=== PATIENT | female | born 1940 | race Caucasian/White ===

== ENCOUNTER 2023-08-11 13:29 | Emergency (ER) | payer MEDICARE, OTHER ==
[2023-08-11] MEDS: Iopamidol 755 Mg/ML 100 ML Bottle IVPUSH ONE (13:56)
[2023-08-11] MEDS: Sodium Chloride 0.9% 100 ML IV SCH (13:56)
[2023-08-11] MEDS: Sodium Chloride 0.9% 10 ML Syringe FLUSH PRN (13:57)
[2023-08-11] MEDS: Sodium Chloride 0.9% 500 ML IV ONE ×2 (13:58→16:34)
[2023-08-11] MEDS: Sodium Chloride 0.9% 1,000 ML ONE (14:02)
[2023-08-11 14:14] LABS: BASOPHILS ABSOLUTE AUTO 0.1 K/mm3 (0.0-0.2); BASOPHILS PERCENT AUTO 0.3 % (0.0-1.0); HEMATOCRIT 37.6 % (37.0-47.0); IMMATURE GRAN ABSOLUTE AUTO 0.41 K/mm3 (0.00-0.05); IMMATURE GRAN PERCENT AUTO 1.6 % (0.0-0.4); LYMPHOCYTES ABSOLUTE AUTO 0.9 K/mm3 (1.0-4.8); LYMPHOCYTES PERCENT AUTO 3.3 % (24.0-44.0); MEAN CORPUSCULAR HEMOGLOBIN 33.1 pg (28.0-32.0); MEAN CORPUSCULAR HGB CONC 31.9 g/dl (32.0-36.0); MEAN CORPUSCULAR VOLUME 103.6 fl (83.0-99.0); MEAN PLATELET VOLUME 10.3 fl (9.4-12.3); MONOCYTES ABSOLUTE AUTO 0.8 K/mm3 (0.0-0.8); NEUTROPHILS PERCENT AUTO 91.8 % (41.0-71.0); PLATELET COUNT,PLT 214 K/mm3 (150-400); RED BLOOD CELL COUNT 3.63 M/mm3 (4.10-5.30); WHITE BLOOD CELL COUNT,WBC 26.11 K/mm3 (3.9-11.3)
[2023-08-11] MEDS: Levofloxacin/Dextrose 5%-Water 500 MG in Premix Bag 1 BAG IV ONE (14:24)
[2023-08-11 14:28] LABS: INR 1.21; PROTHROMBIN TIME 12.8 SECONDS (9.7-12.0)
[2023-08-11 14:30] LABS: PTT,PARTIAL THROMBOPLSTIN TIME 28.4 SECONDS (21.7-31.4)
[2023-08-11 14:38] LABS: SLIDE REVIEW ABNORMAL SMEAR
[2023-08-11 14:41] LABS: LACTIC ACID 10.3 mmol/L (0.4-2.0)
[2023-08-11 14:45] LABS: A/G RATIO 1.1 (1-2); ALBUMIN 2.6 g/dl (3.4-5.0); ANION GAP 21.2 (5-15); BILIRUBIN TOTAL 0.5 mg/dL (0.2-1.0); BUN/CREATININE RATIO 22.9 (14-18); CALCIUM 7.7 mg/dL (8.5-10.1); CREATININE 1.4 mg/dL (0.55-1.02); EST CRCL DRUG DOSING (CG) 24.5 mL/min; POTASSIUM,K 4.2 mEq/L (3.5-5.1)
[2023-08-11 14:53] LABS: APPEARANCE,URINE CLEAR (Clear); BILIRUBIN,URINE NEGATIVE (Negative); COLOR,URINE YELLOW (Yellow); GLUCOSE,URINE NEGATIVE (Negative); KETONES,URINE NEGATIVE (Negative); LEUKOCYTE ESTERASE,URINE NEGATIVE (Negative); NITRITE,URINE NEGATIVE (Negative); OCCULT BLOOD,URINE 2+ (Negative); PH,URINE 5.5 (5.0-8.0); PROTEIN,URINE 1+ (Negative); UROBILINOGEN,URINE 0.2 (0.2-1.0)
[2023-08-11 15:07] LABS: BACTERIA,URINE MODERATE /hpf (FEW); MUCUS,URINE FEW /hpf (FEW); SQUAMOUS EPITHELIAL CELLS,UR 0-5 /hpf (0-5); WBC,URINE 0-5 /hpf (0-5)
[2023-08-11] MEDS: Norepinephrine 4 MG in Dextrose 5% in Water 246 ML IV SCH (15:20)
[2023-08-11] MEDS: Etomidate 2 MG/ML 20 ML SDV IVPUSH ONE ×2 (15:23→16:17)
[2023-08-11] MEDS: propofoL 100 ML IV SCH (16:15)
[2023-08-11] MEDS: Hydrocortisone Sodium Succinate 100 MG/2 ML SDV IV SCH (16:34)
[2023-08-11] MEDS: propofoL 100 ML ONE (16:34)
[2023-08-11] MEDS: Thiamine 200 MG/2 ML MDV IVPUSH ONE (16:34)
[2023-08-11 16:55] LABS: PCO2 ARTERIAL 38.9 mmHg (35.0-45.0)
[2023-08-11 16:56] LABS: BASE EXCESS ARTERIAL -8.9 (-2-2.0); BICARBONATE,ARTERIAL 17.1 meq/L (22.0-26.0); O2 SATURATION ARTERIAL 94.6 % (96.0-97.0)
[2023-08-11] MEDS: Ketamine 500 MG in Sodium Chloride 0.9% 490 ML IV SCH (16:59)
== END 2023-08-11 17:35 ==
LOC: JD.ED 13:29
DX: A41.9 Sepsis, unspecified organism (principal); R65.21 Severe sepsis with septic shock; J96.01 Acute respiratory failure with hypoxia; J18.9 Pneumonia, unspecified organism; I95.9 Hypotension, unspecified; M62.82 Rhabdomyolysis; Z88.8 Allergy status to other drugs, medicaments and biological substances
CPT/HCPCS: 31500; 36415; 36556; 36600; 51702; 70450; 70496; 70498; 71045; 80053; 81001; 82550; 82803; 82947; 83605; 83690; 83880; 84484; 85025; 85610; 85730; 87040; 93005; 96365; 96366; 96367; 96368; 96375; 99291; C1751; J1720; J1956; J2704; J3370; J3411; J3490; J7030; J7040; J7050; J7060; Q9967; 93010; 99292